=== PATIENT | female | born 2000 | race Caucasian/White ===

== ENCOUNTER → 2019-09-08 | Outpatient (CLI) | payer BC | END | disposition home or self-care (01) | LOC: LAB 11:25 → LAB SHORT 11:25 | PROVIDERS: Obstetrics & Gynecology | DX: Z34.01 Encounter for supervision of normal first pregnancy, first trimester (principal) | CPT/HCPCS: 87624; 87625; G0123 ==

== ENCOUNTER → 2019-12-22 | Outpatient (CLI) | payer BC ==
[2019-12-22 15:27] LABS: BASOPHILS ABSOLUTE AUTO 0.04 K/mm3 (0.00-0.23); BASOPHILS PERCENT AUTO 0 % (0-2); EOSINOPHILS ABSOLUTE AUTO 0.18 K/mm3 (0.00-0.68); EOSINOPHILS PERCENT AUTO 2 % (0-6); Hematocrit 34.3 % (33.0-51.0); Hemoglobin 11.2 g/dL (11.5-16.0); IMMATURE GRAN ABSOLUTE AUTO 0.13 K/mm3 (0.00-0.10); IMMATURE GRAN PERCENT AUTO 1 % (0-1); LYMPHOCYTES ABSOLUTE AUTO 2.03 K/mm3 (0.84-5.20); LYMPHOCYTES PERCENT AUTO 18 % (21-46); MONOCYTES ABSOLUTE AUTO 0.79 K/mm3 (0.16-1.47); MONOCYTES PERCENT AUTO 7 % (4-13); Mean Corpuscular HGB 30.5 pg (26.0-34.0); Mean Corpuscular HGB Conc 32.7 g/dL (31.5-36.5); Mean Corpuscular Volume 94 fL (80-100); Mean Platelet Volume 10.5 fL (9.1-12.4); NEUTROPHILS ABSOLUTE AUTO 8.08 K/mm3 (1.96-9.15); NEUTROPHILS PERCENT AUTO 72 % (41-73); Platelet Count 333 K/mm3 (150-400); RDW Coefficient Variation 12.8 % (11.7-14.2); RDW Standard Deviation 44.1 fL (35.1-46.3); Red Blood Cell Count 3.67 M/mm3 (3.80-5.20); White Blood Cell Count 11.25 K/mm3 (4.00-11.30)
== END | disposition home or self-care (01) ==
LOC: LAB 14:35 → LAB SHORT 14:35
PROVIDERS: Obstetrics & Gynecology
DX: O09.93 Supervision of high risk pregnancy, unspecified, third trimester (principal); P05.9 Newborn affected by slow intrauterine growth, unspecified
CPT/HCPCS: 36415; 82950; 85025

== ENCOUNTER → 2020-02-14 | Outpatient (CLI) | payer BC ==
[~2020-02-14] MED LIST: BUSP10 PO; PRENATAL TABLE1 EAC2 PO; SERT100 PO
== END ==
LOC: LAB SHORT 16:41 → OLS 16:41
DX: Z34.03 Encounter for supervision of normal first pregnancy, third trimester (principal)
CPT/HCPCS: 87081; 87653

== ENCOUNTER 2020-03-06 14:30 | Inpatient (IN) | payer BC ==
[~2020-03-06] VITALS: Ht 160 cm; Wt 88.0 kg
[2020-03-06] MEDS ORDERED: SERT100 PO (17:57)
[2020-03-06 17:59] LABS: BASOPHILS ABSOLUTE AUTO 0.05 K/mm3 (0.00-0.23); BASOPHILS PERCENT AUTO 0 % (0-2); EOSINOPHILS ABSOLUTE AUTO 0.03 K/mm3 (0.00-0.68); EOSINOPHILS PERCENT AUTO 0 % (0-6); Hematocrit 32.9 % (33.0-51.0); Hemoglobin 10.7 g/dL (11.5-16.0); IMMATURE GRAN ABSOLUTE AUTO 0.12 K/mm3 (0.00-0.10); IMMATURE GRAN PERCENT AUTO 1 % (0-1); LYMPHOCYTES ABSOLUTE AUTO 1.42 K/mm3 (0.84-5.20); LYMPHOCYTES PERCENT AUTO 9 % (21-46); MONOCYTES ABSOLUTE AUTO 0.69 K/mm3 (0.16-1.47); MONOCYTES PERCENT AUTO 4 % (4-13); Mean Corpuscular HGB 27.9 pg (26.0-34.0); Mean Corpuscular HGB Conc 32.5 g/dL (31.5-36.5); Mean Corpuscular Volume 86 fL (80-100); Mean Platelet Volume 10.6 fL (9.1-12.4); NEUTROPHILS ABSOLUTE AUTO 13.64 K/mm3 (1.96-9.15); NEUTROPHILS PERCENT AUTO 86 % (41-73); Platelet Count 273 K/mm3 (150-400); RDW Coefficient Variation 13.5 % (11.7-14.2); RDW Standard Deviation 41.9 fL (35.1-46.3); Red Blood Cell Count 3.84 M/mm3 (3.80-5.20); White Blood Cell Count 15.95 K/mm3 (4.00-11.30)
[2020-03-06] MEDS ORDERED: BUSP10 PO (17:59)
[2020-03-06] MEDS ORDERED: PRENATAL TABLE1 EAC2 PO (17:59)
--- NOTE | 2020-03-06 19:22 | NUR ---
ASSUMED CARE AT 1735, REPORT GIVEN TO DES GRADY AT 1900 AT BEDSIDE. PT WAS GIVEN FENTANYL AND IS RESTING COMFORTABLY. UPADTED ABOUT PT'S DESIRE FOR AN EPIDURAL THIS EVENING AFTER HIS CASE UPSTAIRS IS COMPLETE.
[2020-03-06 20:05] LABS: Influenza A, PCR Negative (NEGATIVE); Influenza B, PCR Negative (NEGATIVE); Resp Syncytial Virus, PCR Negative (NEGATIVE); SARS-Cov-2 (COVID-19) PCR, MMC Negative (NEGATIVE)
--- NOTE | 2020-03-07 03:02 | NUR ---
RT CALLED FOR STANDBY FOR MEC DELIVERY. BABY BORN WITH STRONG CRY AFTER 20 SEC, RT DISMISSED, NO INTERVENTIONS MADE.
--- NOTE | 2020-03-07 10:49 | NUR ---
PT SLEEPING, BABY SLEEPING IN CRIB, FOB SLEEPING ON DAY BED. NOBODY MOVED WHEN RN WAS IN ROOM CHECK ON THEM.
--- NOTE | 2020-03-07 12:07 | NUR ---
RN ROUNDED TO HELP PT W/ . INSTRUCT/DEMO CORRECT POSITIONING AND LATCHING. DISCUSSED NIPPLE SHAPE AFTER FEEDINGS. NB IS LATCHING OFF AND ON, AND THEN LATCHED ON WELL AND IS CURRENTLY FEEDING. TALKED W/ PT ABOUT HOW TO GET ENOUGH BREAST TISSUE INTO NB'S MOUTH AND THE IMPORTANCE OF NB'S TONGUE BEING ON AREOLA FOR A BETTER FEED. PT VERBALIZED UNDERSTANDING, DENIES ANY FURTHER QUESTIONS OR CONCERNS.
--- NOTE | 2020-03-07 12:33 | NUR ---
PT HAS BEEN UP TWICE TO THE BATHROOM SINCE THE FIRST VOID AND DENIES ANY PROBLEMS VOIDING, THEY WOULD LIKE TO BE DISCHARGED BEFORE NOON TOMORROW. FOB HAS A COURT CASE AT 1400ISH HE HAS TO GO TO. PED'S IS AWARE AND WILL BE HERE IN THE MORNING TO MAKE ROUNDS
--- NOTE | 2020-03-08 08:12 | NUR ---
AFTER INITIAL VS THIS MORNING PT REPORTS FEELING DIZZY. VS REPEATED. VS WNL. PT ENCOURAGED TO EAT SOME BREAKFAST AND DRINK FLUIDS. PT REPORTS SHE FEELS OVERWHELMED AND TIRED AND THINKS IT COULD BE THAT. DISCUSSED WITH DR. LIANA LOMELI ORDERED
--- NOTE | 2020-03-08 08:22 | NUR ---
DR. GAINES IN ROOM TALKING WITH PATIENT. PT TEARFUL AND REPORTS SHE IS JUST TIRED AND OVERWHELMED. DISCUSSED WITH HER AND S.O. THEIR SUPPORT AT HOME. PT REPORTS LOTS OF SUPPORT AND DR GAINES ENCOURAGED PT TO GET AT LEAST 6 HOURS OF SLEEP AT NIGHT TO ENCOURAGE HER REST AND MENTAL WELL BEING. S.O. AGREES HE CAN HELP AND HE HAS ASSISTANCE FROM HIS MOM. PT REASSURED AND REPORTS SHE KNOWS SHE HAS SUPPORT AND WILL USE IT. FORMULA SENT HOME WITH PATIENT IF NEEDED TO SUPPLEMENT.
[2020-03-08] MEDS ORDERED: ACET500 PO (08:25)
[2020-03-08] MEDS ORDERED: IBUP800 PO (08:25)
[2020-03-08 08:49] LABS: BASOPHILS ABSOLUTE AUTO 0.07 K/mm3 (0.00-0.23); BASOPHILS PERCENT AUTO 1 % (0-2); EOSINOPHILS PERCENT AUTO 3 % (0-6); Hematocrit 29.7 % (33.0-51.0); Hemoglobin 9.3 g/dL (11.5-16.0); IMMATURE GRAN ABSOLUTE AUTO 0.19 K/mm3 (0.00-0.10); IMMATURE GRAN PERCENT AUTO 1 % (0-1); LYMPHOCYTES ABSOLUTE AUTO 2.72 K/mm3 (0.84-5.20); LYMPHOCYTES PERCENT AUTO 18 % (21-46); MONOCYTES PERCENT AUTO 6 % (4-13); Mean Corpuscular HGB 27.8 pg (26.0-34.0); Mean Corpuscular HGB Conc 31.3 g/dL (31.5-36.5); Mean Corpuscular Volume 89 fL (80-100); Mean Platelet Volume 11.1 fL (9.1-12.4); NEUTROPHILS ABSOLUTE AUTO 10.66 K/mm3 (1.96-9.15); NEUTROPHILS PERCENT AUTO 71 % (41-73); Platelet Count 250 K/mm3 (150-400); RDW Coefficient Variation 13.7 % (11.7-14.2); RDW Standard Deviation 44.3 fL (35.1-46.3); Red Blood Cell Count 3.34 M/mm3 (3.80-5.20); White Blood Cell Count 14.94 K/mm3 (4.00-11.30)
--- NOTE | 2020-03-08 10:32 | NUR ---
D/C HOME WITH BABY
== END 2020-03-08 10:32 | disposition home or self-care (01) | DRG 807 ==
LOC: BC 14:30 → OBS 14:30 → BC 17:05
PROVIDERS: Obstetrics & Gynecology; ADMIT Obstetrics & Gynecology
PROC: 00HU33Z Insertion of Infusion Device into Spinal Canal, Percutaneous Approach (ICD-10-PCS; 2020-03-06)
PROC: 3E0R3BZ Introduction of Anesthetic Agent into Spinal Canal, Percutaneous Approach (ICD-10-PCS; 2020-03-06)
PROC: 10907ZC Drainage of Amniotic Fluid, Therapeutic from Products of Conception, Via Natural or Artificial Opening (ICD-10-PCS; 2020-03-06)
PROC: 10E0XZZ Delivery of Products of Conception, External Approach (ICD-10-PCS; principal; 2020-03-07)
PROC: 0HQ9XZZ Repair Perineum Skin, External Approach (ICD-10-PCS; 2020-03-07)
DX: O69.89X0 Labor and delivery complicated by other cord complications, not applicable or unspecified (principal); Z37.0 Single live birth; O70.0 First degree perineal laceration during delivery; Z3A.39 39 weeks gestation of pregnancy; Z20.828 Contact with and (suspected) exposure to other viral communicable diseases; O99.344 Other mental disorders complicating childbirth; F41.8 Other specified anxiety disorders; Z87.891 Personal history of nicotine dependence; O77.0 Labor and delivery complicated by meconium in amniotic fluid
CPT/HCPCS: 0241U; 36415; 51702; 85025; 86850; 86900; 86901; J1885; J2001; J2590; J3010; J7120

== ENCOUNTER 2021-08-31 00:41 | Emergency (ER) | payer OTHER ==
[~2021-08-31] VITALS: Ht 154.9 cm; Wt 90.7 kg
[~2021-08-31 00:41] MED LIST changes: +ACET500 PO; +IBUP800 PO
[2021-08-31] MEDS ORDERED: AMOCLA875 PO (04:03)
== END 2021-08-31 04:14 | disposition home or self-care (01) ==
LOC: ER 00:41
DX: H66.91 Otitis media, unspecified, right ear (principal); J02.9 Acute pharyngitis, unspecified; F41.9 Anxiety disorder, unspecified; Z87.891 Personal history of nicotine dependence; Z79.899 Other long term (current) drug therapy
CPT/HCPCS: 86308; 87430; A9270; J1100; J1885

== ENCOUNTER 2022-03-14 17:10 | Emergency (ER) | payer OTHER ==
[~2022-03-14] VITALS: Ht 154.9 cm; Wt 90.7 kg
[~2022-03-14 17:10] MED LIST changes: +AMOCLA875 PO
[2022-03-14] MEDS ORDERED: BUSP10 PO (17:14)
== END 2022-03-14 17:20 | disposition home or self-care (01) ==
LOC: ER 17:10
DX: Z76.0 Encounter for issue of repeat prescription (principal); Z79.899 Other long term (current) drug therapy; Z87.891 Personal history of nicotine dependence
CPT/HCPCS: 99281

== ENCOUNTER 2025-03-11 02:25 | Emergency (ER) | payer OTHER ==
[~2025-03-11] VITALS: Ht 154.9 cm; Wt 93.0 kg
[2025-03-11] MEDS ORDERED: PENVK500 PO (04:14)
[2025-03-11 04:33] VITALS: BP 117/89
== END 2025-03-11 04:30 | disposition home or self-care (01) ==
LOC: ER 02:25
DX: K04.7 Periapical abscess without sinus (principal); Z87.891 Personal history of nicotine dependence; Z79.899 Other long term (current) drug therapy
CPT/HCPCS: 99282; A9270